=== PATIENT | female | born 1935 | race Caucasian/White ===

== ENCOUNTER → 2017-10-06 | Outpatient (CLI) | payer BC, MEDICARE ==
--- NOTE | 2017-10-08 07:18 | MM ---
Reason for exam: screening (asymptomatic). Last mammogram was performed 1 year and 7 months ago. History: Patient is postmenopausal and history of other cancer. Physical Findings: A clinical breast exam by your physician is recommended on an annual basis and results should be correlated with mammographic findings. MG 3D Screening Mammo W/Cad Bilateral CC and MLO view(s) were taken. Prior study comparison: March 13, 2016, bilateral MG 3d screening mammo w/cad. March 06, 2015, mammogram, performed at [facility]. The breast tissue is heterogeneously dense. This may lower the sensitivity of mammography. No significant changes when compared with prior studies. ASSESSMENT: Benign, BI-RAD 2 RECOMMENDATION: Routine screening mammogram of both breasts in 1 year.
== END | disposition home or self-care (01) ==
LOC: RADMAMWWP 14:35
PROVIDERS: ATTEND Family Medicine
DX: Z12.31 Encounter for screening mammogram for malignant neoplasm of breast (principal)
CPT/HCPCS: 77063; 77067

== ENCOUNTER → 2017-10-06 | Outpatient (CLI) | payer BC, MEDICARE ==
[~2017-10-06] MED LIST: SODIUM CHLORIDE 0.9% 500 ML in EMPTY BAG 1 BAG IV PRN; ZOLEDRONIC ACID 5 MG in SODIUM CHLORIDE 0.9% 100 ML IV ONE
[2017-10-06 13:47] VITALS: BP 129/73; PULSE 71; RESP 16; TEMP 97.6
== END | disposition home or self-care (01) ==
LOC: PROCWHC3 13:32
PROVIDERS: ATTEND Family Medicine
DX: M81.8 Other osteoporosis without current pathological fracture (principal)
CPT/HCPCS: 96365; J3489

== ENCOUNTER → 2017-12-06 | Outpatient (CLI) | payer MEDICARE ==
--- NOTE | 2017-12-07 09:24 | BD ---
EXAMINATION TYPE: MG DEXA axial skeleton. DATE OF EXAM: 12/06/2017 COMPARISON: NONE CLINICAL HISTORY: 82-year-old female osteopenia Height: Weight: FRAX RISK QUESTIONS: Alcohol (3 or more units per day): no Family History (Parent hip fracture): no Glucocorticoids (More than 3mos): no (Ex: prednisone, prednisolone, methylprednisolone, dexamethasone, and hydrocortisone). History of Fracture in Adulthood: no Secondary Osteoporosis: 1. Type 1 Diabetes: no 2. Hyperthyroidism: no 3. Menopause before 45: no 4. Malnutrition: no 5. Chronic liver disease: no Rheumatoid Arthritis: no Current Tobacco Use: no RISK FACTORS HISTORY OF: Family History of Osteoporosis: yes Active: yes Diet low in dairy products/other sources of calcium: no Postmenopausal woman: age 46 Lost more than 2 inches in height since high school: no Frequent falls: no MEDICATIONS: reclast, high bp meds, xanax, glaucoma meds, Additional History: EXAM MEASUREMENTS: Bone mineral densitometry was performed using the [employer] System. Bone mineral density as measured about the Lumbar spine is: ----- L1-L4(G/cm2): 1.051 T Score Values are as follows: ----- L2: -1.9 ----- L3: -1.7 ----- L4: -0.2 ----- L1-L4: -1.2 Bone mineral density has: increased 3.0 % since study of: 10.05.2015 Bone mineral density about the R hip (g/cm2): 0.847 Bone mineral density about the L hip (g/cm2): 0.821 T Score values are as follows: -----R Neck: -1.4 -----L Neck: -1.6 -----R Total: -0.6 -----L Total: -0.7 Bone mineral density has: increased 2.1 % since study of: 10.05.16 IMPRESSION: Osteopenia (T Score between -2.5 and -1). There is slightly increased risk of fracture and the patient may be considered for treatment. Re-Screen 2-5 years. NOTE: T-SCORE=SD OF THE YOUNG ADULT MEAN.
== END | disposition home or self-care (01) ==
LOC: RADBDWWP 15:26
PROVIDERS: ATTEND Family Medicine
DX: M85.80 Other specified disorders of bone density and structure, unspecified site (principal)
CPT/HCPCS: 77080

== ENCOUNTER → 2018-10-25 | Outpatient (CLI) | payer MEDICARE ==
[~2018-10-25] MED LIST changes: +SODIUM CHLORIDE 0.9% 500 ML 500 ML in EMPTY BAG 1 BAG IV PRN; -SODIUM CHLORIDE 0.9% 500 ML in EMPTY BAG 1 BAG IV PRN
[2018-10-25 13:50] VITALS: BP 164/78; PULSE 75; RESP 16; TEMP 98.4
== END ==
LOC: PROCWHC3 13:21
PROVIDERS: ATTEND Family Medicine
DX: M85.80 Other specified disorders of bone density and structure, unspecified site (principal); M81.0 Age-related osteoporosis without current pathological fracture
CPT/HCPCS: 96365; J3489

== ENCOUNTER → 2018-11-16 | Outpatient (CLI) | payer MEDICARE ==
--- NOTE | 2018-11-18 10:12 | MM ---
Reason for exam: screening (asymptomatic). Last mammogram was performed 1 year and 1 month ago. History: Patient is postmenopausal and history of other cancer. Physical Findings: A clinical breast exam by your physician is recommended on an annual basis and results should be correlated with mammographic findings. MG 3D Screening Mammo W/Cad Bilateral CC and MLO view(s) were taken. Prior study comparison: October 06, 2017, bilateral MG 3d screening mammo w/cad. March 13, 2016, bilateral MG 3d screening mammo w/cad. The breast tissue is heterogeneously dense. This may lower the sensitivity of mammography. There is chronic nodularity in the left breast. No significant changes when compared with prior studies. ASSESSMENT: Benign, BI-RAD 2 RECOMMENDATION: Routine screening mammogram of both breasts in 1 year.
== END | disposition home or self-care (01) ==
LOC: RADMAMWWP 10:59
PROVIDERS: ATTEND Family Medicine
DX: Z12.31 Encounter for screening mammogram for malignant neoplasm of breast (principal)
CPT/HCPCS: 77063; 77067

== ENCOUNTER → 2019-04-25 | Outpatient (CLI) | payer MEDICARE ==
[2019-04-26 11:39] LABS: Pork IgE Class CLASS 0
[2019-04-26 11:41] LABS: Beef IgE <0.35 kU/L (<0.35); Beef IgE Class CLASS 0; Yeast Bakers/Brew IgE <0.35 kU/L (<0.35)
[2019-04-26 11:42] LABS: Chicken IgE Class CLASS 0; Latex IgE Class CLASS 0
[2019-04-26 11:43] LABS: Alt. alternata IgE Class CLASS 0; Alternaria alternata IgE <0.35 kU/L (<0.35); Asperg. fumagatus IgE <0.35 kU/L (<0.35); Asperg. fumagatus IgE Class CLASS 0; Aureo. pullulans IgE <0.35 kU/L (<0.35); Aureo. pullulans IgE Class CLASS 0; Birch(Com.Silvr) IgE <0.35 kU/L (<0.35); Birch(Com.Silvr) IgE Class CLASS 0; Candida albicans IgE Class CLASS 0; Clad herbarum IgE <0.35 kU/L (<0.35); Clad herbarum IgE Class CLASS 0; Cottonwood IgE <0.35 kU/L (<0.35); Epicoccum purpurascens Class CLASS 0; Epicoccum purpurascens IgE <0.35 kU/L (<0.35); Maple (Box Elder) IgE <0.35 kU/L (<0.35); Maple (Box Elder) IgE Class CLASS 0; Mucor racemosus IgE <0.35 kU/L (<0.35); Mucor racemosus IgE Class CLASS 0; Oak IgE <0.35 kU/L (<0.35); Rhizopus nigricans IgE <0.35 kU/L (<0.35); S.rostrata/Helminth Class CLASS 0; S.rostrata/Helminth IgE <0.35 kU/L (<0.35); Sycamore(Mpl.Lf) IgE <0.35 kU/L (<0.35); Walnut Tree IgE <0.35 kU/L (<0.35); Walnut Tree IgE Class CLASS 0; White Ash IgE Class CLASS 0
[2019-04-27 12:40] LABS: Avocado Class CLASS 0; Banana IgE Class CLASS 0; Cat Epith & Dander IgE <0.35 kU/L (<0.35); Cat Epith & Dander IgE Class CLASS 0; Cockroach IgE <0.35 kU/L (<0.35); Com. Pigweed IgE <0.35 kU/L (<0.35); Com. Pigweed IgE Class CLASS 0; Cow's Milk IgE Class CLASS 0; Dermato. Pteronyssinus Class CLASS 0; Dermato. Pteronyssinus IgE <0.35 kU/L (<0.35); Dermato. farinae IgE <0.35 kU/L (<0.35); Dermato. farinae IgE Class CLASS 0; Dog Dander IgE <0.35 kU/L (<0.35); Egg White IgE <0.35 kU/L (<0.35); English Plantain IgE Class CLASS 0; Hazelnut IgE <0.35 kU/L (<0.35); Hazelnut IgE Class CLASS 0; Johnson Grass IgE Class CLASS 0; Kiwi IgE <0.35 kU/L (<0.35); Lamb's Quarter IgE <0.35 kU/L (<0.35); Lamb's Quarter IgE Class CLASS 0; Peanut IgE <0.35 kU/L (<0.35); Potato IgE <0.35 kU/L (<0.35); Potato IgE Class CLASS 0; Soybean IgE <0.35 kU/L (<0.35); Timothy Grass IgE <0.35 kU/L (<0.35)
[2019-04-27 23:48] LABS: Beef IgG 9.3 mcg/mL (< 2.0); Chicken Meat IgG 2.2 mcg/mL (< 2.0); Corn IgG 3.7 mcg/mL (< 2.0); Cow's Milk IgG 50.3 mcg/mL (< 2.0); Peanut IgG 2.9 mcg/mL (< 2.0); Potato IgG 2.1 mcg/mL (< 2.0); Soybean IgG 3.1 mcg/mL (< 2.0); Tomato IgG 3.2 mcg/mL (< 2.0); Wheat IgG 3.9 mcg/mL (< 2.0)
== END | disposition home or self-care (01) ==
LOC: LABWHC1 13:37
PROVIDERS: ATTEND Otolaryngology
DX: L50.0 Allergic urticaria (principal); B44.89 Other forms of aspergillosis; J30.89 Other allergic rhinitis
CPT/HCPCS: 36415; 86001; 86003

== ENCOUNTER → 2019-07-19 | Outpatient (CLI) | payer MEDICARE ==
--- NOTE | 2019-07-19 11:00 | USB ---
Reason for exam: clinical finding. History: Patient is postmenopausal and history of other cancer. Physical Findings: Nurse Summary: 0.5cm nodule at 9 o'clock, soft, superficial (nurse dw). US Breast Limited LT Left limited breast ultrasound including focal area of concern, retroareolar and axilla demonstrates a 12 x 4 x 12mm oval, solid, hyperechoic lesion at 8 o'clock BB, appears as a well circumscribed lipoma. These results were verbally communicated with the patient and result sheet given to the patient on 07/19/19. ASSESSMENT: Benign, BI-RAD 2 RECOMMENDATION: Return to routine screening mammogram schedule for both breasts. Back on schedule.
== END | disposition home or self-care (01) ==
LOC: RADUSWWP 09:18
PROVIDERS: ATTEND Family Medicine
DX: N63.20 Unspecified lump in the left breast, unspecified quadrant (principal)

== ENCOUNTER → 2019-09-06 | Outpatient (CLI) | payer MEDICARE ==
[2019-09-06 13:57] VITALS: BP 157/81; PULSE 80; RESP 18; TEMP 98
--- NOTE | 2019-09-06 14:31 | P.GSHP ---
History of Present Illness H&P Date: 09/06/19 Chief Complaint: mass in the left breast The patient is an 84 year old white female with a complaint of a mass in her left breast which she noted in June. She is seen in consultation for Dr. Hauser for this mass. There is no pain in the breast. She has not noted a ny change in the size of the lump. Her last mammogram was on . This was benign BIRADS 2. There was chronic nodularity noted in the left breast. The patient had a ultrasound of the left breast after she noted a lump in June and this revealed a 12 x 12 mm solid of lesion at 8:00 which appeared to be consistent with a circumscribed lipoma. No nipple discharge or changes. Patient has lost 5 pounds. Family History: patient: uterine cancer; 51 years old, hysterectomy took ovaries as well Hormonal History: menarche: 13 , breast fed: no, age at first : 20 menopause: 50 BCP: none hormones: 4 years Medical history: 1. Total abdominal hysterectomy 2. Pericardial window for fluid around her heart 3. Right hand carpal tunnel 4. Medical History: 1. borderline diabetic 2. arthritis 3. follows with cardiology/ fluid caused by a virus 1991 Social History: smoke: none alcohol: none drugs: none - Constitutional Constitutional: Denies chills, Denies fever - EENT Comment: wears glasses Eyes: denies blurred vision, denies pain Ears: right: decreased hearing, bilateral: tinnitus Ears, nose, mouth and throat: Denies headache, Denies sore throat - Breasts Breasts: bilateral: as per HPI - Cardiovascular Cardiovascular: Denies chest pain, Denies shortness of breath - Respiratory Respiratory: Denies cough, Denies 7 - Gastrointestinal Gastrointestinal: Denies abdominal pain, Denies diarrhea, Denies nausea, Denies vomiting - Genitourinary (Female) Comment: frequant urination Genitourinary: Denies dysuria, Denies hematuria - Menstruation Comment: uterine cancer/ radiation prior to surgery Menstruation: Reports post hysterectomy - Musculoskeletal Comment: arthritis Musculoskeletal: Denies myalgias - Integumentary Integumentary: Denies pruritus, Denies rash - Neurological Neurological: Reports tingling - Psychiatric Psychiatric: Denies anxiety, Denies depression - Endocrine Endocrine: Reports weight change, Denies fatigue - Hematologic/Lymphatic Comment: none - Allergic/Immunologic Comment: rash when working in her garden Past Medical History Past Medical History: GERD/Reflux, Hypertension, Osteoarthritis (OA) Additional Past Medical History / Comment(s): UTERINE CANCER. OSTEOPOROSIS. History of Any Multi-Drug Resistant Organisms: None Reported Past Surgical History: Section, Hysterectomy Additional Past Surgical History / Comment(s): PERICARDIAL WINDOW, R CARPAL TUNNEL Past Anesthesia/Blood Transfusion Reactions: No Reported Reaction Past Psychological History: No Psychological Hx Reported Smoking Status: Never smoker Past Alcohol Use History: Rare Past Drug Use History: None Reported Medications and Allergies Home Medications Medication Instructions Recorded Confirmed Type ALPRAZolam [Xanax] 1 mg PO DIRECTED PRN 02/14/14 09/06/19 History Calcium Citrate/Vitamin D3 1 each PO DAILY 02/14/14 09/06/19 History [Calcium Citrate - Vit D3 Tab] Multivitamin/Iron/Folic Acid 1 each PO DAILY 02/14/14 09/06/19 History [Centrum Complete Multivit Tab] Naproxen [Naprosyn] 500 mg PO Q12HR PRN 02/14/14 09/06/19 History amLODIPine [Norvasc] 5 mg PO DAILY 02/14/14 09/06/19 History Allergies Allergy/AdvReac Type Severity Reaction Status Date / Time No Known Allergies Allergy Verified 09/06/19 13:52 Surgical - Exam Vital Signs Temp Pulse Resp BP Pulse Ox 98.0 F 80 18 157/81 95 09/06/19 13:54 09/06/19 13:54 09/06/19 13:54 09/06/19 13:54 09/06/19 13:54 BMI 21.2 - General no distress - Eyes normal ocular movement - ENT no hearing loss, no congestion - Neck no masses, trachea midline, no lymphadectomy, no venous distension - Respiratory normal expansion, normal respiratory effort, clear to percussion, clear to auscultation - Cardiovascular Rhythm: regular Heart Sounds: normal: S1, S2 - Abdomen Abdomen: soft, non tender, no guarding, no rigid, no rebound - Integumentary normal turgor - Neurologic no disoriented, no combative - Musculoskeletal normal gait, normal posture - Psychiatric oriented to time, oriented to person, oriented to place, speech is normal, memory intact breast exam: BRA 34C ptosis 2/3 Right breast: Multiple positional exam fibrocystic changes, no dominant masses or nodules of concern Right axilla: No adenopathy of concern Left breast: Cystic changes, increased nodularity with mass in the lower inner quadrant of the breast, this is approximately 1-1/2-2 cm in size, it is somewhat firm and does not correspond completely with a lipoma Left axilla: No adenopathy of concern Results Mammogram and ultrasound results reviewed Assessment and Plan Assessment: Impression: 1. Mass/swelling left breast 2. Fibrocystic breast changes 3. Personal history of uterine cancer 4. History of arthritis 5. Hypertension 6. GERD 7. Borderline diabetic Plan: 1. FNA of the mass/swelling left breast 2. Follow-up after his results of FNA 3. Medical management of medical conditions Risk and benefits of FNA were discussed with the patient. She understands and this will be performed. Cc: Dr. Alan encounter 25 minutes, > 50% spent in planning and counselling
--- NOTE | 2019-09-06 14:37 | P.PCN ---
Date of Procedure: 09/06/19 Preoperative Diagnosis: mass left breast Postoperative Diagnosis: same Procedure(s) Performed: FNA mass left breast Surgeon: Aby Montano Estimated Blood Loss (ml): 0 Pathology: other (FNA left breast) Condition: stable Indications for Procedure: Swelling/mass left breast Operative Findings: The area of concern in the left breast was prepped using alcohol. The area was in the lower medial aspect of the breast. It was approximately a 8 mm firm circular nodule-like area. To this there appears to be a softer area of fullness which may be more consistent with a lipoma. The more superior area was non-worrisome. A 22-gauge needle on a 10 mL syringe was introduced into the area of concern were multiple passes were obtained. Negative vacuum pressure was applied to the syringe. Specimen was obtained. This was prepared and sent for pathology. The patient tolerated the procedure in a stable condition.
== END | disposition home or self-care (01) ==
LOC: WWCWWP 12:55
PROVIDERS: ATTEND Surgery
DX: N64.9 Disorder of breast, unspecified (principal)
CPT/HCPCS: 88173

== ENCOUNTER → 2020-04-17 | Outpatient (CLI) | payer MEDICARE ==
--- NOTE | 2020-04-18 08:44 | MM ---
Reason for exam: screening (asymptomatic). Last mammogram was performed 1 year and 5 months ago. History: Patient is postmenopausal and history of other cancer. Physical Findings: A clinical breast exam by your physician is recommended on an annual basis and results should be correlated with mammographic findings. MG 3D Screening Mammo W/Cad Bilateral CC and MLO view(s) were taken. Prior study comparison: November 16, 2018, bilateral MG 3d screening mammo w/cad. October 06, 2017, bilateral MG 3d screening mammo w/cad. The breast tissue is heterogeneously dense. This may lower the sensitivity of mammography. Benign appearing calcifications in the right breast. No significant changes when compared with prior studies. ASSESSMENT: Benign, BI-RAD 2 RECOMMENDATION: Routine screening mammogram of both breasts in 1 year.
--- NOTE | 2020-04-22 18:25 | BD ---
EXAMINATION TYPE: Axial Bone Density DATE OF EXAM: 04/17/2020 COMPARISON: 12.06.2017 CLINICAL HISTORY: 84 YR OLD FEMALE.....ICD-10 CODE: M81.0 KNOWN OSTEOPOROSIS Height: 57 Weight: 106 FRAX RISK QUESTIONS: NOTHING TO NOTE HERE RISK FACTORS HISTORY OF: Diet low in dairy products/other sources of calcium: YES, MAYBE A BIT....NO MILK Postmenopausal woman: YES, AT AGE 51 YRS Take estrogen and/or progesterone medications: YES, FOR A WHILE, THEN UTERINE CA Lost more than 2 inches in height since high school: YES Hyperparathyroidism: NO Adrenal Insufficiency: NO MEDICATIONS: Prednisone or other steroids: DOSE PAC IN FEBRUARY ONLY Osteoporosis Medications: RECLAST INJECTION, SINCE AGE 51 ON SOME SORT OF OSTEOPOROSIS MED Additional Medications: BP MEDS, XANAX, HX OF RADIATION, CALCIUM AND VIT D Additional History: HYPERTENSION, UTERINE CA, OSTEOARTHRITIS EXAM MEASUREMENTS: Bone mineral densitometry was performed using the [employer]. Bone mineral density as measured about the Lumbar spine is: ----- L1-L4(G/cm2): 1.063 T Score Values are as follows: ----- L1: -1.4 ----- L2: -1.4 ----- L3: -1.4 ----- L4: 0.0 ----- L1-L4: -1.0 Bone mineral density has: Increased 4.4% SINCE..12.06.2017 Bone mineral density about the R hip (g/cm2): 0.919 Bone mineral density about the L hip (g/cm2): 0.911 T Score values are as follows: -----R Neck: -1.2 -----L Neck: -1.1 -----R Total: -0.7 -----L Total: -0.8 Bone mineral density has: Decreased -1.3% SINCE 03.07.2018 FRAX%s: THERE IS A 11.8% CHANCE FOR A MAJOR OSTEOPOROTIC FX AND A 3.0% FOR HIP....PROBABILITY FOR F X IN 10 YRS TIME IMPRESSION: Osteopenia (T Score between -2.5 and -1). There is slightly increased risk of fracture and the patient may be considered for treatment. Re-Screen 2-5 years. NOTE: T-SCORE=SD OF THE YOUNG ADULT MEAN.
== END | disposition home or self-care (01) ==
LOC: RADMAMWWP 10:32
PROVIDERS: ATTEND Family Medicine
DX: Z12.31 Encounter for screening mammogram for malignant neoplasm of breast (principal); M85.80 Other specified disorders of bone density and structure, unspecified site; M81.0 Age-related osteoporosis without current pathological fracture
CPT/HCPCS: 77063; 77067; 77080

== ENCOUNTER → 2021-05-30 | Outpatient (CLI) | payer MEDICARE ==
--- NOTE | 2021-06-02 11:43 | MM ---
Reason for exam: screening (asymptomatic). Last mammogram was performed 1 year and 1 month ago. History: Patient is postmenopausal and has history of other cancer at age 48. Physical Findings: A clinical breast exam by your physician is recommended on an annual basis and results should be correlated with mammographic findings. MG 3D Screening Mammo W/Cad Bilateral CC and MLO view(s) were taken. Prior study comparison: November 16, 2018, bilateral MG 3d screening mammo w/cad. The breast tissue is extremely dense which could obscure a lesion on mammography. There is no discrete abnormality. ASSESSMENT: Negative, BI-RAD 1 RECOMMENDATION: Routine screening mammogram of both breasts in 1 year. Some consider bilateral ultrasound surveillance in patient with extremely dense fibroglandular tissue.
== END | disposition home or self-care (01) ==
LOC: RADMAMWWP 10:18
PROVIDERS: ATTEND Family Medicine
DX: Z12.31 Encounter for screening mammogram for malignant neoplasm of breast (principal); Z78.0 Asymptomatic menopausal state
CPT/HCPCS: 77063; 77067

== ENCOUNTER → 2021-08-07 | Outpatient (CLI) | payer MEDICARE ==
--- NOTE | 2021-08-07 16:38 | XR ---
Right shoulder and right clavicle HISTORY: Pain, deformity 2 views of the right clavicle, 3 views the right shoulder There is no fracture or dislocation. Acromioclavicular joint shows hypertrophic change. Right lung apex as visualized is normal. IMPRESSION: Acromioclavicular joint arthropathy, correlate for tenderness, palpable abnormality.
== END | disposition home or self-care (01) ==
LOC: RADXRMAIN 13:02
PROVIDERS: ATTEND Family Medicine
DX: M19.011 Primary osteoarthritis, right shoulder (principal); M21.921 Unspecified acquired deformity of right upper arm

== ENCOUNTER 2022-05-01 13:49 | Emergency (ER) | payer MEDICARE ==
[2022-05-01 13:56] VITALS: TEMP 98.1
--- NOTE | 2022-05-01 14:23 | ED ---
General Adult HPI - General Chief complaint: Chest Pain Stated complaint: Irregular EKG Time Seen by Provider: 05/01/22 13:58 Source: patient Mode of arrival: ambulatory Limitations: no limitations - History of Present Illness Initial comments: This patient is an 86-year-old woman who presents to have evaluation after she was observed to be in bigeminy at her primary physician's office. The patient states that she had gone to see her physician today because she has had some tingling to her left leg going back a number of weeks. She also occasionally has symptoms on the left arm. Patient also has been having some generalized fatigue and weakness. She denies chest pain, dyspnea, sensation of palpitations, lightheadedness or syncope. Patient not having any change in bladder or bowel function. No numbness of the left leg. She states there p eriods when it feels as if her left leg is cold. -: week(s) Location: left, lower extremity Radiation: non-radiation Quality: other (Tingling) Consistency: intermittent Improves with: none Worsens with: none Associated Symptoms: other (Fatigue) Treatments Prior to Arrival: none - Related Data Home Medications Medication Instructions Recorded Confirmed ALPRAZolam [Xanax] 1 mg PO DIRECTED PRN 02/14/14 09/06/19 Calcium Citrate/Vitamin D3 1 each PO DAILY 02/14/14 09/06/19 [Calcium Citrate - Vit D3 Tab] Multivitamin/Iron/Folic Acid 1 each PO DAILY 02/14/14 09/06/19 [Centrum Complete Multivit Tab] Naproxen [Naprosyn] 500 mg PO Q12HR PRN 02/14/14 09/06/19 amLODIPine [Norvasc] 5 mg PO DAILY 02/14/14 09/06/19 Allergies Allergy/AdvReac Type Severity Reaction Status Date / Time No Known Allergies Allergy Verified 05/01/22 13:56 Review of Systems ROS Statement: Those systems with pertinent positive or pertinent negative responses have been documented in the HPI. ROS Other: All systems not noted in ROS Statement are negative. Constitutional: Denies: fever, chills Respiratory: Denies: cough, dyspnea Cardiovascular: Denies: chest pain, palpitations, edema, syncope Gastrointestinal: Denies: abdominal pain, nausea, vomiting, diarrhea Genitourinary: Denies: dysuria, hematuria Musculoskeletal: Denies: back pain Skin: Denies: rash Neurological: Reports: paresthesias. Denies: headache, weakness, numbness Past Medical History Past Medical History: GERD/Reflux, Hypertension, Osteoarthritis (OA) Additional Past Medical History / Comment(s): UTERINE CANCER. OSTEOPOROSIS. History of Any Multi-Drug Resistant Organisms: None Reported Past Surgical History: Section, Hysterectomy Additional Past Surgical History / Comment(s): PERICARDIAL WINDOW, R CARPAL TUNNEL Past Anesthesia/Blood Transfusion Reactions: No Reported Reaction Past Psychological History: No Psychological Hx Reported Smoking Status: Never smoker Past Alcohol Use History: Rare Past Drug Use History: None Reported General Exam Limitations: no limitations General appearance: alert, in no apparent distress Head exam: Present: atraumatic, normocephalic Eye exam: Present: normal appearance. Absent: scleral icterus, conjunctival injection Respiratory exam: Present: normal lung sounds bilaterally. Absent: respiratory distress, wheezes, rales, rhonchi, stridor Cardiovascular Exam: Present: regular rate, normal rhythm, systolic murmur (There is a grade 2/6 systolic ejection murmur) GI/Abdominal exam: Present: soft. Absent: distended, tenderness, guarding, rebound, mass, pulsatile mass Extremities exam: Present: normal inspection, normal capillary refill. Absent: pedal edema, calf tenderness Back exam: Present: normal inspection. Absent: CVA tenderness (R), CVA tenderness (L) Neurological exam: Present: alert. Absent: motor sensory deficit Skin exam: Present: warm, dry, intact, normal color. Absent: rash Course Vital Signs 05/01/22 05/01/22 13:53 13:59 Temperature 98.1 F Pulse Rate 94 Pulse Rate [ 87 Celery Stripper ] Respiratory 20 Rate Blood Pressure 159/76 O2 Sat by Pulse 97 Oximetry EKG Findings - EKG Results: EKG: interpreted by ERMD, sinus rhythm (Rate 84 bpm), normal axis, normal QRS, normal ST/T, no acute changes Medical Decision Making - Lab Data Result diagrams: 05/01/22 14:32 05/01/22 14:32 Lab Results 05/01/22 05/01/22 05/01/22 Range/Units 14:32 14:32 14:32 WBC 9.3 (3.8-10.6) k/uL RBC 5.00 (3.80-5.40) m/uL Hgb 14.6 (11.4-16.0) gm/dL Hct 43.5 (34.0-46.0) % MCV 87.0 (80.0-100.0) fL MCH 29.2 (25.0-35.0) pg MCHC 33.6 (31.0-37.0) g/dL RDW 13.1 (11.5-15.5) % Plt Count 214 (150-450) k/uL MPV 8.2 Neutrophils % (Manual) 84 % Lymphocytes % (Manual) 13 % Monocytes % (Manual) 3 % Neutrophils # (Manual) 7.81 H (1.3-7.7) k/uL Lymphocytes # (Manual) 1.21 (1.0-4.8) k/uL Monocytes # (Manual) 0.28 (0-1.0) k/uL Nucleated RBCs 0 (0-0) /100 WBC Manual Slide Review Performed RBC Morphology Normal PT 10.2 (9.0-12.0) sec INR 0.9 (<1.2) APTT 22.3 (22.0-30.0) sec Sodium 138 (137-145) mmol/L Potassium 3.9 (3.5-5.1) mmol/L Chloride 103 (98-107) mmol/L Carbon Dioxide 22 (22-30) mmol/L Anion Gap 13 mmol/L BUN 20 H (7-17) mg/dL Creatinine 0.90 (0.52-1.04) mg/dL Est GFR (CKD-EPI)AfAm 68 (>60 ml/min/1.73 sqM) Est GFR (CKD-EPI)NonAf 59 (>60 ml/min/1.73 sqM) Glucose 155 H (74-99) mg/dL Calcium 9.8 (8.4-10.2) mg/dL Magnesium 1.9 (1.6-2.3) mg/dL Total Bilirubin 0.4 (0.2-1.3) mg/dL AST 24 (14-36) U/L ALT 18 (4-34) U/L Alkaline Phosphatase 105 (38-126) U/L Troponin I (0.000-0.034) ng/mL Total Protein 6.9 (6.3-8.2) g/dL Albumin 4.3 (3.5-5.0) g/dL 05/01/22 Range/Units 14:32 WBC (3.8-10.6) k/uL RBC (3.80-5.40) m/uL Hgb (11.4-16.0) gm/dL Hct (34.0-46.0) % MCV (80.0-100.0) fL MCH (25.0-35.0) pg MCHC (31.0-37.0) g/dL RDW (11.5-15.5) % Plt Count (150-450) k/uL MPV Neutrophils % (Manual) % Lymphocytes % (Manual) % Monocytes % (Manual) % Neutrophils # (Manual) (1.3-7.7) k/uL Lymphocytes # (Manual) (1.0-4.8) k/uL Monocytes # (Manual) (0-1.0) k/uL Nucleated RBCs (0-0) /100 WBC Manual Slide Review RBC Morphology PT (9.0-12.0) sec INR (<1.2) APTT (22.0-30.0) sec Sodium (137-145) mmol/L Potassium (3.5-5.1) mmol/L Chloride (98-107) mmol/L Carbon Dioxide (22-30) mmol/L Anion Gap mmol/L BUN (7-17) mg/dL Creatinine (0.52-1.04) mg/dL Est GFR (CKD-EPI)AfAm (>60 ml/min/1.73 sqM) Est GFR (CKD-EPI)NonAf (>60 ml/min/1.73 sqM) Glucose (74-99) mg/dL Calcium (8.4-10.2) mg/dL Magnesium (1.6-2.3) mg/dL Total Bilirubin (0.2-1.3) mg/dL AST (14-36) U/L ALT (4-34) U/L Alkaline Phosphatase (38-126) U/L Troponin I <0.012 (0.000-0.034) ng/mL Total Protein (6.3-8.2) g/dL Albumin (3.5-5.0) g/dL Disposition Clinical Impression: Paresthesia, Bigeminal rhythm Disposition: HOME SELF-CARE Condition: Good Instructions (If sedation given, give patient instructions): Paresthesia (ED) Is patient prescribed a controlled substance at d/c from ED?: No Referrals: Ravindra Alan DO [Primary Care Provider] - 1-2 days Samuel Magaña MD [REFERRING] - 1-2 days Michael Maloney MD [STAFF PHYSICIAN] - 1-2 days
--- NOTE | 2022-05-01 14:48 | XR ---
EXAMINATION TYPE: XR chest 2V DATE OF EXAM: 05/01/2022 COMPARISON: NONE HISTORY: Chest pain. TECHNIQUE: Frontal and lateral views of the chest are obtained. FINDINGS: There is no suspicious focal air space opacity, pleural effusion, or pneumothorax seen. T he cardiac silhouette size is within normal limits. Multilevel spurring of thoracic spine is present. Overlying EKG leads are noted. IMPRESSION: No acute process.
[2022-05-01 14:50] LABS: Albumin 4.3 g/dL (3.5-5.0); Calcium 9.8 mg/dL (8.4-10.2); Magnesium 1.9 mg/dL (1.6-2.3); Potassium 3.9 mmol/L (3.5-5.1); Total Bilirubin 0.4 mg/dL (0.2-1.3); Total Protein 6.9 g/dL (6.3-8.2)
[2022-05-01 15:01] LABS: HCT 43.5 % (34.0-46.0); HGB 14.6 gm/dL (11.4-16.0); MCH 29.2 pg (25.0-35.0); MCHC 33.6 g/dL (31.0-37.0); Mean Platelet Volume 8.2; Platelet Count 214 k/uL (150-450); RDW 13.1 % (11.5-15.5); WBC 9.3 k/uL (3.8-10.6)
[2022-05-01 15:04] LABS: INR 0.9 (<1.2); Partial Thromboplastin Time 22.3 sec (22.0-30.0); Prothrombin Time 10.2 sec (9.0-12.0)
[2022-05-01 15:36] LABS: Lymphocytes # (M) 1.21 k/uL (1.0-4.8); Monocytes # (M) 0.28 k/uL (0-1.0); Neutrophils # (M) 7.81 k/uL (1.3-7.7); Neutrophils % (M) 84 %; Nucleated Red Blood Cells 0 /100 WBC (0-0); Total Cells Counted 100
[2022-05-01 15:37] LABS: RBC Morphology Normal
[2022-05-01 16:20] VITALS: BP 110/87; PULSE 78; RESP 16
== END 2022-05-01 16:20 | disposition home or self-care (01) ==
LOC: EC 13:49
DX: R20.2 Paresthesia of skin (principal); R00.8 Other abnormalities of heart beat; R53.1 Weakness; R53.83 Other fatigue; I10 Essential (primary) hypertension; M19.90 Unspecified osteoarthritis, unspecified site; Z79.899 Other long term (current) drug therapy
CPT/HCPCS: 36415; 71046; 80053; 83735; 84484; 85025; 85610; 85730; 93005; 99285

== ENCOUNTER → 2022-05-14 | Outpatient (CLI) | payer MEDICARE ==
--- NOTE | 2022-05-14 17:47 | XR ---
EXAMINATION TYPE: XR lumbosacral spine 5 views DATE OF EXAM: 05/14/2022 Comparison: None Clinical History: 86-year-old female M54.50 LOW BACK PAIN, UNSPECIFIED Findings: Osteopenia. 5 lumbar type vertebral bodies. Moderate disc/degenerative change throughout characterize d by disc space narrowing and endplate spondylosis. Hypertrophic facet arthropathy is also present th roughout. Degenerative trace grade 1 retrolisthesis L3-L4 and L4-L5. Vertebral body heights are prese rved. Impression: 1. Osteopenia. No vertebral compression collapse. 2. Moderate disc/endplate degenerative change as well as hypertrophic facet arthropathy throughout. 3. Degenerative grade 1 retrolisthesis L3-L4 and L4-L5.
== END | disposition home or self-care (01) ==
LOC: RADXRMAIN 15:22
PROVIDERS: ATTEND Family Medicine
DX: M47.816 Spondylosis without myelopathy or radiculopathy, lumbar region (principal); M43.16 Spondylolisthesis, lumbar region
CPT/HCPCS: 72110

== ENCOUNTER → 2022-06-08 | Outpatient (CLI) | payer MEDICARE ==
--- NOTE | 2022-06-08 15:56 | XR ---
EXAMINATION TYPE: XR chest 2V DATE OF EXAM: 06/08/2022 3:47 PM COMPARISON: Chest radiographs from 05/01/2022 TECHNIQUE: XR chest 2V Portable AP radiograph of the chest. CLINICAL INDICATION:Female, 86 years old with history of R06.02 SOB R07.9 CHEST PAIN J20.9 BRONCHITIS ; FINDINGS: Lungs/Pleura: There is no evidence of pleural effusion, focal consolidation, or pneumothorax. Pulmonary vascularity: Unremarkable. Heart/mediastinum: Cardiomediastinal silhouette is unremarkable. Musculoskeletal: No acute osseous pathology. IMPRESSION: No acute cardiopulmonary disease/process. No subcutaneous change from prior examination.
== END | disposition home or self-care (01) ==
LOC: RADXRMAIN 15:24
PROVIDERS: ATTEND Family Medicine
DX: R06.02 Shortness of breath (principal); R07.9 Chest pain, unspecified; J20.9 Acute bronchitis, unspecified
CPT/HCPCS: 71046

== ENCOUNTER → 2022-06-16 | Outpatient (CLI) | payer MEDICARE ==
--- NOTE | 2022-06-16 17:43 | BD ---
EXAMINATION TYPE: Axial Bone Density DATE OF EXAM: 06/16/2022 COMPARISON: 12/06/2017 CLINICAL HISTORY: 86 years year old Female. ICD-10 CODE: M81.0 AGE-RELATED OSTEOPOROSIS Height: 57 IN Weight: 105 LBS FRAX RISK QUESTIONS: Secondary Osteoporosis: 3. Menopause before 45: TOTAL HYST AGE 54 RISK FACTORS HISTORY OF: Active: YES Postmenopausal woman: TOTAL HYST AGE 54 MEDICATIONS: Additional Medications: CALCIUM, MULTI VIT, HIGH BLOOD MEDS, Additional History: UTERINE CANCER WITH RADIATION 1988 EXAM MEASUREMENTS: Bone mineral densitometry was performed using the [employer] System. Bone mineral density as measured about the Lumbar spine is: ----- L1-L4(G/cm2): 1.052 T Score Values are as follows: ----- L1: -1.9 ----- L2: -1.9 ----- L3: -1.7 ----- L4: -0.7 ----- L1-L4: -1.1 Bone mineral density has: Increased 4.1% since study of: 12/06/2017 Bone mineral density about the R hip (g/cm2): 0.871 Bone mineral density about the L hip (g/cm2): 0.831 T Score values are as follows: -----R Neck: -1.2 -----L Neck: -1.5 -----R Total: -0.7 -----L Total: -0.8 Bone mineral density has: Decreased -1.7% since study of: 12/06/2017 FRAX%s: The graph provided illustrates a 12.3 chance for a major osteoporotic fx and a 3.5 chance for the hips probability for fx in 10 years time. IMPRESSION: Osteopenia (T Score between -2.5 and -1). There is slightly increased risk of fracture and the patient may be considered for treatment. Re-Screen 2-5 years. NOTE: T-SCORE=SD OF THE YOUNG ADULT MEAN.
--- NOTE | 2022-06-17 18:52 | MM ---
Reason for Exam: Screening (asymptomatic). Last screening mammogram was performed 12 month(s) ago. Patient History: Menarche at age 14. First Full-Term at age 20. Left ovary removed at age 48. Right ovary removed at age 48. Hysterectomy at age 48. Postmenopausal. Other cancer, age 48. Risk Values: Kena 5 year model risk: 0.9%. NCI Lifetime model risk: 0.9%. Prior Study Comparison: 11/16/2018 Bilateral Screening Mammogram, [facility]. 04/17/2020 Bilateral Screening Mammogram, [facility]. 05/30/2021 Bilateral Screening Mammogram, [facility]. Tissue Density: The breast tissue is heterogeneously dense. This may lower the sensitivity of mammography. Findings: Analyzed By CAD. Chronic nodularity lateral posterior left cc view. There is no suspicious group of microcalcifications or new suspicious mass in either breast. Overall Assessment: Benign, BI-RAD 2 Management: Screening Mammogram of both breasts in 1 year. 1. Patient should continue monthly self breast exams. 2. A clinical breast exam by your physician is recommended on an annual basis. 3. This exam should not preclude additional follow-up of suspicious palpable abnormalities. Electronically signed and approved by: Gudelia Obrien M.D. Radiologist
--- NOTE | 2022-06-17 18:52 | MM ---
Reason for Exam: Screening (asymptomatic). Last screening mammogram was performed 12 month(s) ago. Patient History: Menarche at age 14. First Full-Term at age 20. Left ovary removed at age 48. Right ovary removed at age 48. Hysterectomy at age 48. Postmenopausal. Other cancer, age 48. Risk Values: Kena 5 year model risk: 0.9%. NCI Lifetime model risk: 0.9%. Prior Study Comparison: 11/16/2018 Bilateral Screening Mammogram, [facility]. 04/17/2020 Bilateral Screening Mammogram, [facility]. 05/30/2021 Bilateral Screening Mammogram, [facility]. Tissue Density: The breast tissue is heterogeneously dense. This may lower the sensitivity of mammography. Findings: Analyzed By CAD. Chronic nodularity lateral posterior left cc view. There is no suspicious group of microcalcifications or new suspicious mass in either breast. Overall Assessment: Benign, BI-RAD 2 Management: Screening Mammogram of both breasts in 1 year. 1. Patient should continue monthly self breast exams. 2. A clinical breast exam by your physician is recommended on an annual basis. 3. This exam should not preclude additional follow-up of suspicious palpable abnormalities. Electronically signed and approved by: Gudelia Obrien M.D. Radiologist
== END | disposition home or self-care (01) ==
LOC: RADMAMWWP 14:56
PROVIDERS: ATTEND Family Medicine
DX: Z12.31 Encounter for screening mammogram for malignant neoplasm of breast (principal); M85.89 Other specified disorders of bone density and structure, multiple sites; Z78.0 Asymptomatic menopausal state; Z80.3 Family history of malignant neoplasm of breast
CPT/HCPCS: 77063; 77067; 77080

== ENCOUNTER → 2022-07-13 | Outpatient (CLI) | payer MEDICARE ==
--- NOTE | 2022-07-14 12:19 | CA ---
Transthoracic Echo Report Name: Natalie Collins Age: 86 Gender: F : 1935 Exam Date: 07/13/2022 14:43 Exam Location: [place] [facility] Ht (in): 58 Wt (lb): 105 Ordering Physician: Ru Cast DO Attending/Referring Phys: Plaster Foreman Orly Prasad RDCS Procedure CPT: Indications: R07.9 CHEST PAIN Cardiac Hx: Technical Quality: Fair Contrast 1: Total Dose (mL): Contrast 2: Total Dose (mL): MEASUREMENTS (Male / Female) Normal Values 2D ECHO LV Diastolic Diameter PLAX 2.7 cm 4.2 - 5.9 / 3.9 - 5.3 cm LV Systolic Diameter PLAX 1.8 cm IVS Diastolic Thickness 1.0 cm 0.6 - 1.0 / 0.6 - 0.9 cm LVPW Diastolic Thickness 1.2 cm 0.6 - 1.0 / 0.6 - 0.9 cm LV Relative Wall Thickness 0.8 RV Internal Dim ED PLAX 3.0 cm LVOT Diameter 1.6 cm LA Volume 23.5 cm??? 18 - 58 / 22 - 52 cm??? M-MODE Aortic Root Diameter MM 2.2 cm LA Systolic Diameter MM 2.6 cm LA Ao Ratio MM 1.2 AV Cusp Separation MM 1.3 cm DOPPLER AV Peak Velocity 139.9 cm/s AV Peak Gradient 7.8 mmHg AV Mean Velocity 97.7 cm/s AV Mean Gradient 4.2 mmHg AV Velocity Time Integral 26.4 cm LVOT Peak Velocity 145.2 cm/s LVOT Peak Gradient 8.4 mmHg LVOT Velocity Time Integral 29.6 cm LVOT Stroke Volume 56.9 cm??? LVOT Stroke Volume Index 41.1 ml/m??? LVOT Cardiac Index 2717.2 cm???/min???m??? AV Area Cont Eq vti 2.2 cm??? AV Area Cont Eq pk 2.0 cm??? MV Area PHT 3.1 cm??? Mitral E Point Velocity 91.8 cm/s Mitral A Point Velocity 110.2 cm/s Mitral E to A Ratio 0.8 MV Deceleration Time 241.0 ms MV E' Velocity 6.2 cm/s Mitral E to MV E' Ratio 14.8 TR Peak Velocity 277.8 cm/s TR Peak Gradient 30.9 mmHg Right Ventricular Systolic Press 34.9 mmHg FINDINGS Left Ventricle Mildly increased left ventricular wall thickness. Normal left ventricular systolic function with no obvious regional wall motion abnormalities. Left ventricular ejection fraction is estimated at 55-60 %. Normal left ventricular diastolic filling pattern. Right Ventricle Normal right ventricular size and function. Right Atrium Mild right atrial dilatation. Left Atrium Normal left atrial size. Mobile Interatrial septal. Mitral Valve Structurally normal mitral valve. Mild mitral annular calcification. Mild mitral regurgitation. Aortic Valve Trileaflet aortic valve. No aortic valve stenosis or regurgitation. Aortic valve sclerosis. Tricuspid Valve Structurally normal tricuspid valve. Mild tricuspid regurgitation. Pulmonic Valve Trace pulmonic regurgitation. Pericardium No pericardial effusion. Aorta Normal size aortic root and proximal ascending aorta. CONCLUSIONS 1. Normal left ventricle size and systolic function 2. Mild mitral and tricuspid regurgitation 3. No pericardial effusion Previewed by: Dr. Deepali Boyle MD (Electronically Signed) Final Date: 14 July 2022 12:18
== END | disposition home or self-care (01) ==
LOC: RADECHMAIN 14:25
PROVIDERS: ATTEND Family Medicine
DX: I08.1 Rheumatic disorders of both mitral and tricuspid valves (principal)
CPT/HCPCS: 93306

== ENCOUNTER → 2023-06-17 | Outpatient (CLI) | payer MEDICARE ==
--- NOTE | 2023-06-21 01:40 | MM ---
Reason for Exam: Screening (asymptomatic). Last screening mammogram was performed 12 month(s) ago. Patient History: Menarche at age 14. First Full-Term at age 20. Left ovary removed at age 48. Right ovary removed at age 48. Hysterectomy at age 48. Postmenopausal. Other cancer, age 48. Prior Study Comparison: 04/17/2020 Bilateral Screening Mammogram, [facility]. 05/30/2021 Bilateral Screening Mammogram, [facility]. 06/16/2022 Bilateral MG 3D screening mammo w/cad, [facility]. Tissue Density: The breast tissue is heterogeneously dense. This may lower the sensitivity of mammography. Findings: Analyzed By CAD. Chronic nodularity lateral aspect of the left breast. There is no suspicious group of microcalcifications or new suspicious mass in either breast. Overall Assessment: Benign, BI-RAD 2 Management: Screening Mammogram of both breasts in 1 year. . Patient should continue monthly self-breast exams. A clinical breast exam by your physician is recommended on an annual basis. This exam should not preclude additional follow-up of suspicious palpable abnormalities. Electronically signed and approved by: Gudelia Obrien M.D. Radiologist
== END | disposition home or self-care (01) ==
LOC: RADMAMWWP 14:20
PROVIDERS: ATTEND Family Medicine
DX: Z12.31 Encounter for screening mammogram for malignant neoplasm of breast (principal); Z78.0 Asymptomatic menopausal state
CPT/HCPCS: 77063; 77067

== ENCOUNTER 2023-10-12 18:48 | Emergency (ER) | payer MEDICARE ==
[2023-10-12 19:01] VITALS: TEMP 98.5
--- NOTE | 2023-10-12 19:25 | ED ---
Chest Pain HPI - General Source: patient, family Mode of arrival: ambulatory Limitations: no limitations <Alvaro Guardado - Last Filed: 10/12/23 19:31> <Edna Gama - Last Filed: 10/15/23 19:03> - General Chief Complaint: Chest Pain Stated Complaint: chest pain high BP Time Seen by Provider: 10/12/23 19:20 - History of Present Illness Initial Comments: 88-year-old female with a chief complaint of chest pain. Patient states for the past month she has had intermittent left-sided chest pain does not radiate. Sta shakira that her family discovered chest pain today who urged her to present to the ED for further evaluation. Follows with Dr. Sepulveda. (Alvaro Guardado) 88 year old female presents to the emergency department for evaluation of chest pain. Patient states that this started around 4 days ago it is intermittent. She states that it feels like it is below her left breast. Denies any aggravating factors. She denies any associated symptoms including shortness of breath, diaphoresis, nausea, vomiting, cough, fever. Patient believes that this is gas pain. She does admit to taking gas relief medications which she states helps. (Edna Gama) - Related Data Home Medications Medication Instructions Recorded Confirmed ALPRAZolam [Xanax] 1 mg PO DIRECTED PRN 02/14/14 09/06/19 Calcium Citrate/Vitamin D3 1 each PO DAILY 02/14/14 09/06/19 [Calcium Citrate - Vit D3 Tab] Multivitamin/Iron/Folic Acid 1 each PO DAILY 02/14/14 09/06/19 [Centrum Complete Multivit Tab] Naproxen [Naprosyn] 500 mg PO Q12HR PRN 02/14/14 09/06/19 amLODIPine [Norvasc] 5 mg PO DAILY 02/14/14 09/06/19 Allergies Allergy/AdvReac Type Severity Reaction Status Date / Time No Known Allergies Allergy Verified 05/01/22 13:56 Review of Systems ROS Other: All systems not noted in ROS Statement are negative. <Alvaro Guardado - Last Filed: 10/12/23 19:31> ROS Other: All systems not noted in ROS Statement are negative. <Edna Gama - Last Filed: 10/15/23 19:03> ROS Statement: Those systems with pertinent positive or pertinent negative responses have been documented in the HPI. Past Medical History Past Medical History: GERD/Reflux, Hypertension, Osteoarthritis (OA) Additional Past Medical History / Comment(s): UTERINE CANCER. OSTEOPOROSIS. History of Any Multi-Drug Resistant Organisms: None Reported Past Surgical History: Section, Hysterectomy Additional Past Surgical History / Comment(s): PERICARDIAL WINDOW, R CARPAL TUNNEL Past Anesthesia/Blood Transfusion Reactions: No Reported Reaction Past Psychological History: No Psychological Hx Reported Smoking Status: Never smoker Past Alcohol Use History: Rare Past Drug Use History: None Reported <Alvaro Guardado - Last Filed: 10/12/23 19:31> General Exam Limitations: no limitations <Alvaro Guardado - Last Filed: 10/12/23 19:31> Limitations: no limitations General appearance: alert, in no apparent distress Head exam: Present: atraumatic, normocephalic, normal inspection Eye exam: Present: normal appearance, PERRL, EOMI. Absent: scleral icterus, conjunctival injection, periorbital swelling ENT exam: Present: normal exam, mucous membranes moist Neck exam: Present: normal inspection. Absent: tenderness, meningismus, lymphadenopathy Respiratory exam: Present: normal lung sounds bilaterally. Absent: respiratory distress, wheezes, rales, rhonchi, stridor Cardiovascular Exam: Present: regular rate, normal rhythm, normal heart sounds. Absent: systolic murmur, diastolic murmur, rubs, gallop, clicks GI/Abdominal exam: Present: soft, normal bowel sounds. Absent: distended, tenderness, guarding, rebound, rigid Extremities exam: Present: normal inspection, full ROM, normal capillary refill. Absent: tenderness, pedal edema, joint swelling, calf tenderness Back exam: Present: normal inspection Neurological exam: Present: alert, oriented X3 Psychiatric exam: Present: normal affect, normal mood Skin exam: Present: warm, dry, intact, normal color. Absent: rash <Edna Gama - Last Filed: 10/15/23 19:03> - General Exam Comments Initial Comments: Visual Physical Exam Vital signs reviewed General: Well-appearing, nontoxic, no acute distress. Head: Normocephalic, atraumatic Eyes: PERRLA, EOMI ENT: Airway patent Chest: Nonlabored breathing Skin: No visual rash, normal skin tone Neuro: Alert and oriented 3 Musculoskeletal: No gross abnormalities (Alvaro Guardado) Course Vital Signs 10/12/23 10/12/23 10/12/23 18:56 21:34 21:59 Temperature 98.5 F Pulse Rate 84 75 71 Respiratory 20 16 18 Rate Blood Pressure 174/91 128/76 138/71 O2 Sat by Pulse 98 96 96 Oximetry Chest Pain [facility] <Alvaro Guardado - Last Filed: 10/12/23 19:31> - Differential Diagnosis GERD - Wells Criteria Clinical Symptoms of DVT: (0) No No Alternative Diagnosis: (0) No Immobilization of Surgery in Previous 4 Weeks: (0) No Previous DVT/PE: (0) No Hemoptysis: (0) No Malignancy: (0) No - DEMETRA Score Age > 65: (1) Yes 3 or more CAD Risk Factors: (0) No Known CAD with more than 50% Stenosis: (0) No Aspirin use within the Past 7 Days: (0) No Elevated Cardiac Markers: (0) No ST Deviation Greater than 0.5mm: (0) No <Edna Gama - Last Filed: 10/15/23 19:03> - [facility] Quicknote portion performed. Signed Alvaro Guardado PA-C (Alvaro Guardado) Was pt. sent in by a medical professional or institution ([facility], LEGAL COLLECTOR, urgent care, hospital, or group home...) When possible be specific @ -No Did you speak to anyone other than the patient for history (EMS, parent, family, police, friend...)? What history was obtained from this source @ -Family provided some of the history of this patient Did you review nursing and triage notes (agree or disagree)? Why? @ -I reviewed and agree with nursing and triage notes Were old charts reviewed (outside hosp., previous admission, EMS record, old EKG, old radiological studies, urgent care reports/EKG's, group home records)? Report findings @ -No old charts were reviewed Differential Diagnosis (chest pain, altered mental status, abdominal pain women, abdominal pain men, vaginal bleeding, weakness, fever, dyspnea, syncope, headache, dizziness, GI bleed, back pain, seizure, CVA, palpatations, mental health, musculoskeletal)? @ -Differential Chest Pain: Stable Angina, Unstable Angina, STEMI, NSTEMI Aortic Dissection, Pneumothorax, Musculoskeletal, Esophageal Spasm GERD, Cholecystitis, Pancreatitis, Zoster, this is not meant to be an all-inclusive list. EKG interpreted by me (3pts min.). @ -EKG at 2017 shows sinus rhythm with frequent PACs rate 72, AL 149, QRS 86, QT/QTc 3 [id number] X-rays interpreted by me (1pt min.). @ -Chest x-ray shows no acute process CT interpreted by me (1pt min.). @ -None done U/S interpreted by me (1pt. min.). @ -None done What testing was considered but not performed or refused? (CT, X-rays, U/S, labs)? Why? @ -None What meds were considered but not given or refused? Why? @ -None Did you discuss the management of the patient with other professionals (professionals i.e. , PA, LEGAL COLLECTOR, lab, RT, psych nurse, manager social media, program strategist, teacher, traffic control officer, onsite case manager)? Give summary @ -No Was smoking cessation discussed for >3mins.? @ -No Was critical care preformed (if so, how long)? @ -No Were there social determinants of health that impacted care today? How? (Homelessness, low income, unemployed, alcoholism, drug addiction, transportation, low edu. Level, literacy, decrease access to med. care, shelter, rehab)? @ -No Was there de-escalation of care discussed even if they declined (Discuss DNR or withdrawal of care, Hospice)? DNR status @ -No What co-morbidities impacted this encounter? (DM, HTN, Smoking, COPD, CAD, Cancer, CVA, ARF, Chemo, Hep., AIDS, mental health diagnosis, sleep apnea, morbid obesity)? @ -None Was patient admitted / discharged? Hospital course, mention meds given and route, prescriptions, significant lab abnormalities, going to OR and other pertinent info. @ -Discharged. Patient presented to the emergency department for evaluation of chest pain x4 days. EKG at 2017 shows sinus rhythm with no ST or T wave changes. Laboratory studies obtained. CBC unremarkable, normal coagulation studies; CMP shows sodium 135, potassium 4.1, negative troponin. Chest x-ray shows no acute infiltrate or other cardiopulmonary process. Encouraged observation status but patient would like to be discharged home. Patient asymptomatic at this time. Patient and family understanding of discharge plan. Advised to follow-up with Dr. Sepulveda. Strict return precautions discussed. Patient stable at time of discharge. Case discussed with Dr. Khan Undiagnosed new problem with uncertain prognosis? @ -No Drug Therapy requiring intensive monitoring for toxicity (Heparin, Nitro, Insulin, Cardizem)? @ -No Were any procedures done? @ -No Diagnosis/symptom? @ -Atypical chest pain Acute, or Chronic, or Acute on Chronic? @ -acute Uncomplicated (without systemic symptoms) or Complicated (systemic symptoms)? @ -uncomplicated Side effects of treatment? @ -No Exacerbation, Progression, or Severe Exacerbation? @ -No Poses a threat to life or bodily function? How? (Chest pain, [place], [place], pneumonia, PE, COPD, DKA, ARF, appy, cholecystitis, CVA, Diverticulitis, Homicidal, Suicidal, threat to staff... and all critical care pts) @ -No (Edna Gama) Disposition <Alvaro Guardado - Last Filed: 10/12/23 19:31> Is patient prescribed a controlled substance at d/c from ED?: No <Edna Gama - Last Filed: 10/15/23 19:03> Clinical Impression: Atypical chest pain, Gastroesophageal reflux disease Disposition: HOME SELF-CARE Condition: Stable Instructions (If sedation given, give patient instructions): Chest Pain (ED) Additional Instructions: Please follow up with your primary care provider and Dr. Sepulveda. Return to the emergency department for new or worsening symptoms. Referrals: Ravindra Alan DO [Primary Care Provider] - 1-2 days
[2023-10-12 20:40] LABS: HCT 44.1 % (34.0-46.0); HGB 14.7 gm/dL (11.4-16.0); MCH 29.1 pg (25.0-35.0); MCHC 33.4 g/dL (31.0-37.0); MCV 87.2 fL (80.0-100.0); Mean Platelet Volume 8.1; Platelet Count 214 k/uL (150-450); RBC 5.05 m/uL (3.80-5.40); RDW 12.3 % (11.5-15.5)
[2023-10-12 20:51] LABS: INR 0.9 (<1.2); Partial Thromboplastin Time 23.2 sec (22.0-30.0); Prothrombin Time 10.1 sec (10.0-12.5)
[2023-10-12 20:59] LABS: Neutrophils % (M) 60 %; Nucleated Red Blood Cells 0 /100 WBC (0-0); Reactive Lymphocytes Present; Total Cells Counted 100
--- NOTE | 2023-10-12 21:08 | XR ---
EXAMINATION TYPE: XR chest 2V DATE OF EXAM: 10/12/2023 COMPARISON: 06/08/2022 HISTORY: 88-year-old female with chest pain TECHNIQUE: AP and lateral views FINDINGS: Heart is upper limits of normal in size. Aorta and pulmonary vasculature within normal limits. Mild h yperinflation without consolidation or pleural effusion. IMPRESSION: Borderline heart size. Mild hyperinflation may relate to depth of inspiration or underlying emphysema . No acute process seen.
[2023-10-12 21:53] LABS: ALT 20 U/L (4-34); AST 28 U/L (14-36); African American GFR (CKD) 57 (>60 ml/min/1.73 sqM); Albumin 4.2 g/dL (3.5-5.0); Alkaline Phosphatase 103 U/L (38-126); Anion Gap 6 mmol/L; Blood Urea Nitrogen 18 mg/dL (7-17); Carbon Dioxide 26 mmol/L (22-30); Chloride 103 mmol/L (98-107); Glucose 141 mg/dL (74-99); Magnesium 2.1 mg/dL (1.6-2.3); Non-African American GFR(CKD) 50 (>60 ml/min/1.73 sqM); Potassium 4.1 mmol/L (3.5-5.1); Sodium 135 mmol/L (137-145); Total Bilirubin 0.4 mg/dL (0.2-1.3); Total Protein 7.1 g/dL (6.3-8.2)
[2023-10-12 22:12] VITALS: BP 138/71; PULSE 71; RESP 18
== END 2023-10-12 22:26 | disposition home or self-care (01) ==
LOC: EC 18:48
DX: K21.9 Gastro-esophageal reflux disease without esophagitis (principal); I10 Essential (primary) hypertension; M19.90 Unspecified osteoarthritis, unspecified site; Z79.899 Other long term (current) drug therapy
CPT/HCPCS: 36415; 71046; 80053; 83735; 84484; 85025; 85610; 85730; 93005; 99285

== ENCOUNTER → 2024-06-28 | Outpatient (CLI) | payer MEDICARE ==
--- NOTE | 2024-06-29 11:58 | MM ---
Reason for Exam: Screening (asymptomatic). Last screening mammogram was performed 12 month(s) ago. Patient History: Menarche at age 14. First Full-Term at age 20. Left ovary removed at age 48. Right ovary removed at age 48. Hysterectomy at age 48. Postmenopausal. Other cancer, age 48. Prior Study Comparison: 05/30/2021 Bilateral Screening Mammogram, [facility]. 06/16/2022 Bilateral MG 3D screening mammo w/cad, [facility]. 06/17/2023 Bilateral MG 3D screening mammo w/cad, [facility]. Tissue Density: The breasts are heterogeneously dense, which may obscure small masses. Findings: Analyzed By CAD. Right breast: There is no suspicious group of microcalcifications or new suspicious mass. Left breast: There is no suspicious group of microcalcifications or new suspicious mass. Overall Assessment: Negative, BI-RAD 1 Management: Screening Mammogram of both breasts in [address] [facility] will attempt to contact patient to return for supplemental views and ultrasound if indicated. Patient should continue monthly self-breast exams. A clinical breast exam by your physician is recommended on an annual basis. This exam should not preclude additional follow-up of suspicious palpable abnormalities. Note on Kena scores and lifetime risk: 1. A Kena score greater than 3% is considered moderate risk. If this is the case, consider specialist referral to assess eligibility for a risk reducing agent. 2. If overall lifetime risk for the development of breast cancer is 20% or higher, the patient may qualify for future screening with alternating mammogram and breast MRI. [facility], , 06/29/2024 11:55 AM. Electronically signed and approved by: Zeke Traylor DO
== END | disposition home or self-care (01) ==
LOC: RADMAMWWP 14:51
PROVIDERS: ATTEND Family Medicine
DX: Z12.31 Encounter for screening mammogram for malignant neoplasm of breast
CPT/HCPCS: 77063; 77067

== ENCOUNTER → 2024-10-03 | Outpatient (CLI) | payer MEDICARE ==
--- NOTE | 2024-10-03 19:36 | CT ---
EXAMINATION TYPE: CT chest wo con DATE OF EXAM: 10/03/2024 7:00 PM COMPARISON: None. CLINICAL INDICATION: Female, 89 years old with history of J90 PLEURAL EFFUSION, TECHNIQUE: Axial images were obtained at 5 mm thick sections. Reconstructed images are reviewed on [employer] computer in the coronal plane. Contrast used: mL of , (none if empty) Oral contrast used: (none if empty) CT DLP: 119.60 mGycm, Automated exposure control for dose reduction was used. FINDINGS: Portion of the thyroid visualized is normal. No suspicious lung nodules or focal infiltrates are present. No enlarged mediastinal or hilar adenopathy is evident. The ascending aorta diameter at the level o f the main pulmonary artery is 3.0 cm. The main pulmonary artery diameter at the bifurcation is 2.[address] sections are obtained through the upper abdomen. Abdomen is essentially unremarkable. IMPRESSION: 1. No pleural effusion evident. 2. No suspicious acute changes CT chest [facility], Workstation: [facility], 10/03/2024 7:34 PM
[2024-10-03 19:55] LABS: Basophils # (A) 0.05 X 10*3/uL (0.00-0.10); Basophils % (A) 0.6 %; Eosinophils # (A) 0.11 X 10*3/uL (0.04-0.35); Eosinophils % (A) 1.2 %; HCT 41.1 % (37.2-46.3); Lymphocytes # (A) 2.01 X 10*3/uL (0.90-5.00); Lymphocytes % (A) 22.2 %; MCH 27.3 pg (27.0-32.0); MCHC 31.6 g/dL (32.0-37.0); MCV 86.2 FL (80.0-97.0); Mean Platelet Volume 11.6 FL (9.5-12.2); Monocytes # (A) 0.83 X 10*3/uL (0.20-1.00); Monocytes % (A) 9.2 %; NRBC Per 100 WBC 0 X 10*3/uL (0.00-0.01); Neutrophils # (A) 5.96 X 10*3/uL (1.80-7.70); Neutrophils % (A) 65.9 %; Platelet Count 224 X 10*3/uL (140-440); RBC 4.77 X 10*6/uL (4.10-5.20); WBC 9.04 X 10*3/uL (4.50-10.00)
[2024-10-03 20:03] LABS: ALT 18 U/L (8-44); AST 20 U/L (13-35); Albumin 4.3 g/dL (3.8-4.9); Albumin/Globulin Ratio 2.05 Ratio (1.60-3.17); Alkaline Phosphatase 76 U/L (41-126); Blood Urea Nitrogen 16.1 mg/dL (9.0-27.0); Calcium 10.2 mg/dL (8.7-10.3); Carbon Dioxide 23.1 mmol/L (21.6-31.8); Chloride 104 mmol/L (96-109); Globulin 2.1 g/dL (1.6-3.3); Glucose 107 mg/dL (70-110); Potassium 4.6 mmol/L (3.5-5.5); Sodium 140 mmol/L (135-145); Total Bilirubin 0.4 mg/dL (0.3-1.2); Total Protein 6.4 g/dL (6.2-8.2)
[2024-10-03 20:16] LABS: Erythrocyte Sedimentation Rate 13 mm/Hr (0-30)
[2024-10-03 21:25] LABS: NT-Pro-B-Type Natriuretic Pept 215 pg/mL (0-450)
== END | disposition home or self-care (01) ==
LOC: RADCTMAIN 15:40
PROVIDERS: ATTEND Family Medicine
DX: J90 Pleural effusion, not elsewhere classified (principal)
CPT/HCPCS: 71250; 80053; 83880; 85025; 85652